=== PATIENT | male | born 1970 | race Caucasian/White ===

== ENCOUNTER 2023-06-05 03:53 | Day surgery (SDC) | payer BC ==
[2023-05-29 14:25] VITALS: BMI 40.0
[2023-06-05 09:38] VITALS: RESP 18
[2023-06-05] MEDS ORDERED: LIDOCAINE HCL 1%, 10 MG/ML (20ML VIAL) ONE (13:13)
[2023-06-05] MEDS: ceFAZolin SODIUM 1 GM VIAL IVPB ONE ×2 (13:16→13:45)
[2023-06-05] MEDS: LIDOCAINE HCL 1%, 10 MG/ML (50 mL VIAL) INF ONE ×2 (13:17→14:03)
[2023-06-05] MEDS ORDERED: MIDAZOLAM HCL 2 MG/2 ML SINGLE DOSE VIAL ONE ×3 (13:37→14:16)
[2023-06-05] MEDS ORDERED: FENTANYL CITRATE/PF 50 MCG/ML VIAL ONE (13:49)
[2023-06-05] MEDS ORDERED: LIDOCAINE 1%/EPI 1:100000 (20 ML MULTI DOSE VIAL) ONE (14:18)
[2023-06-05] MEDS: LIDOCAINE 1%/EPI 1:100000 (20 ML MULTI DOSE VIAL) IJ ONE (14:19)
[2023-06-05] MEDS ORDERED: BACITRACIN ZINC 15 GM TUBE TOPICAL OINTMENT ONE (14:34)
[2023-06-05] MEDS: BACITRACIN ZINC 15 GM TUBE TOPICAL OINTMENT TP ONE (14:43)
[2023-06-05 15:05] VITALS: BP 138/78; PULSE 78; TEMP 97.8
== END 2023-06-05 15:32 | disposition home or self-care (01) ==
LOC: JASU-SURG 03:53
PROVIDERS: ATTEND Surgery
PROC: 0HB0XZZ Excision of Scalp Skin, External Approach (ICD-10-PCS; 2023-06-05)
PROC: 0HB4XZZ Excision of Neck Skin, External Approach (ICD-10-PCS; principal; 2023-06-05 11:00)
DX: D23.4 Other benign neoplasm of skin of scalp and neck (principal)
CPT/HCPCS: 88305-TC